=== PATIENT | male | born 1960 | race Caucasian/White ===

== ENCOUNTER → 2021-09-05 | Outpatient (CLI) | payer OTHER ==
[2021-09-05] VITALS (9 sets, daily range): BP systolic 103–125; BP diastolic 62–76
[~2021-09-05] VITALS: Ht 165.1 cm; Wt 59.0 kg
[~2021-09-05] MED LIST: ASPIRIN EC81 M1 PO; NITROSTAT0.4 M1 PO
[2021-09-05 11:02] LABS: HEMATOCRIT 48.5 % (42.0-52.0); HEMOGLOBIN 16.4 gm/dL (14.0-18.0); MCH 31.3 pg (26.0-34.0); MCHC 33.7 g/dL (28.0-37.0); MCV 92.8 fL (80.0-100.0); MPV 7.3 fl. (7.2-11.1); RBC 5.22 mil/uL (4.50-6.00); RDW-CV 13.1 % (10.5-14.5)
[2021-09-05 11:13] LABS: ANION GAP 8 mmol/L (7-16); BUN 14 mg/dL (7-18); CALCIUM 8.8 mg/dL (8.5-10.1); CHLORIDE 102 mmol/L (98-107); CO2 27 mmol/L (21-32); GLUCOSE 94 mg/dL (70-99); POTASSIUM 4.2 mmol/L (3.5-5.1); SODIUM 137 mmol/L (136-145)
[2021-09-05 11:17] LABS: ALBUMIN 3.6 g/dL (3.4-5.0); ALKALINE PHOSPHATASE 63 U/L (46-116); CHOLESTEROL 293 mg/dL (<200); HDL CHOLESTEROL 47 mg/dL (>40); LDL CHOLESTEROL 224 mg/dL (<100); SGOT 16 U/L (15-37); SGPT 24 U/L (30-65); TC:HDL 6.2 Ratio (Not establshd); TOTAL BILIRUBIN 0.5 mg/dL (<0.1-1.0); TOTAL PROTEIN 7.6 g/dL (6.4-8.2); TRIGLYCERIDE 113 mg/dL (<150); VLDL 23 mg/dL (<40)
[2021-09-05 11:27] LABS: SERUM ASSESSMENT Clear
[2021-09-05 11:52] LABS: APTT 30.7 Seconds (25.0-31.3); PROTIME 10.2 Seconds (9.20-11.50)
--- NOTE | 2021-09-05 19:06 | EKG ---
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: : 1960 Requested By: Durga Son Order Number: [id number] Reading MD: Durga Son Measurements Intervals [place] Rate: 78 P: 73 NE: 155 QRS: 20 QRSD: 120 T: 125 QT: 384 QTc: 438 Interpretive Statements Sinus rhythm Nonspecific intraventricular conduction delay Anterolateral infarct, age indeterminate Abnormal T, consider ischemia, lateral leads No previous ECG available for comparison Electronically Signed On 09-05-2021 19:06:24 MARKETING ASSISTANT by Durga Son [email or web address] <ELECTRONICALLY SIGNED> By: Durga Son MD, FACC 09/05/21 1906 110 01 Durga Son MD, [facility] /EPI
--- NOTE | 2021-09-05 20:00 | CARD ---
[address] [address] CARDIAC CATH REPORT Name: MARYA NAQVI Room: [facility].#: [id number] Admission: 09/05/21 Attend Phys: Durga Son MD, F Discharge: Date of : 58 Report #: [id number] THIS REPORT FOR: cc: Rao Tello Russell J. DO Blick, David R. 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 Attempted PTCA. Indication Dyspnea, Chest pain Risk Factors Hypercholesterolemia, Coronary Artery Disease, Tobacco History () Previous Procedures/Diagnoses Previous PCI, Previous LA Admission/Lab Medications/Medications given during procedure Heparin Unfract., Oxygen Nasal cannula 2 l per min, , 0.9% Sodium Chloride IV 75 ml per hr, Lidocaine Subcut 5 ml, Nitroglycerin IA 200 mcg, Verapamil IA 2.5 mg, Heparin IV 2900 units, 0.9% Sodium Chloride IV 200 ml per hr, 0.9% Sodium Chloride IV 150 ml per hr, Aggrastat Unknown 5.9 ml, Heparin IV 2000 units Procedure Narrative The patient was brought electively to the Cardiac Catheterization Laboratory and was prepped and draped in a sterile manner. The right wrist was infiltrated with 2% Lidocaine subcutaneous anesthesia. IV conscious sedation was used [place] [address] CARDIAC CATH REPORT Name: MARYA NAQVI Room: [facility]#: [id number] Admission: 09/05/21 Attend Phys: Durga Son MD, F Discharge: Date of : 58 Report #: [id number] monitoring and was performed in the presence of a registered nurse who was an independent trained observer other than the physician performing the procedure. A Slender Glidesheath sheath was inserted into the right radial artery. Coronary angiography was performed using coronary diagnostic catheters. The right coronary system was accessed and visualized with a Diagnostic 6Fr JR4 catheter. The left coronary system was accessed and visualized with a Diagnostic 6Fr JR4 catheter. The left ventricle was accessed and visualized with a Diagnostic 6Fr pigtail catheter. Left ventricular/Aortic Valve gradient assessed via catheter pullback. Left ventriculogram was performed in WARD projection. Closure device was deployed with a 6 Fr Vasc-Band Reg 24cm. The patient tolerated the procedure well and there were no complications associated with the procedure. There was no hematoma. Intraoperative Conscious Sedation Sedation start time: 1256 Case end Time: 1341 Fentanyl 25.0 mcg Versed 2 mg Fluoro Time: 13.0 minutes Dose: DAP 66679 cGycm2 1256 mGy Contrast Type and Amount: Visipaque 160 mL Coronary Angiography The patient's coronary anatomy is co- dominant. Diagnostic Cath Left Main 0% stenosis LAD Proximal stent that had 0% stenosis. Mid 30% stenosis. Circumflex 0% stenosis OM1 large vessel with proximal stent that had 0% restenosis, however there was a distal 70% edge stenosis noted. Right Coronary 30% proximal stenosis. A medium sized acute marginal artery had a 90% mid stenosis. Left Ventriculography The left ventricular ejection fraction is estimated to be 20-25%. Left ventricular wall motion abnormalities are present. There is 3+ mitral insufficiency. akinesis noted of the mid and distal anteroapical wall. Hemodynamics The aortic pressure is 91/51 mmHg with a mean of [place] [address] CARDIAC CATH REPORT Name: MARYA NAQVI Room: [facility]#: [id number] Admission: 09/05/21 Attend Phys: Durga Son MD, F Discharge: Date of : 58 Report #: [id number] ventricular pressure is 91/06 mmHg with a mean of mmHg. The left ventricular end diastolic pressure is 12 mmHg. There was no gradient across the aortic valve upon pullback. Pullback from the left ventricle to the aorta revealed no gradient across the aortic valve. PCI Technique Lesion Anticoagulation was achieved with Heparin. bolus of IV aggrastat given Percutaneous coronary intervention was performed on the first obtuse marginal branch segment. The lesion stenosis prior to intervention was 70% with DOMINIQUE 3 flow. A 6FR XB 3.5 100CM Guide Catheter was used to engage the lm ostium. A IG: BMW 190cm Interventional Guidewire was used to cross the lesion. BALLOON DILATION Unable to advance neither a BMW nor StyleChat by [employer] Mobile flex guide wire into the first marginal artery because of the acute takeoff of the circumflex artery from the left main artery, and the acute takeoff of the margianl artery from the circumfelx artery. In addition, there was a stent noted in the ostium of the marginal artery. Final angiography reveals 70 % stenosis with DOMINIQUE 3 flow. Conclusion 1. Patent stent in the proximal LAD. 2. Patent stent in the first marginal artery of the circumflex artery, with a distal 70% edge stenosis noted. 3. LVEF 20-25% 4. Unsuccessful PTCA of the marginal branch because of acute bends in the proximal circumflex and the takeoff of the marginal artery. 5. Moderately severe mitral regurgitation. Recommendations Consider referral for ICD <ELECTRONICALLY SIGNED> By: Durga Son MD, FACC 09/05/211958 57 58Dacecile Son MD, FACC /INF
== END | disposition home or self-care (01) ==
LOC: M.CL 09:48
PROVIDERS: ATTEND Internal Medicine Cardiovascular Disease
DX: R07.9 Chest pain, unspecified (principal); I25.10 Atherosclerotic heart disease of native coronary artery without angina pectoris; I34.0 Nonrheumatic mitral (valve) insufficiency; R06.00 Dyspnea, unspecified; I10 Essential (primary) hypertension; E78.00 Pure hypercholesterolemia, unspecified; F17.210 Nicotine dependence, cigarettes, uncomplicated; Z98.890 Other specified postprocedural states; Z79.899 Other long term (current) drug therapy; Z20.822 Contact with and (suspected) exposure to COVID-19; Z88.8 Allergy status to other drugs, medicaments and biological substances